=== PATIENT | female | born 1955 | race Caucasian/White ===

== ENCOUNTER 2017-01-01 03:01 | Emergency (ER) | payer MEDICARE, OTHER ==
[~2017-01-01 03:01] MED LIST: ASPIR 8181 MG PO; ASPIRIN81 MG PO; ATIVAN0.5 MG PO; BRILINTA 90 MG90 MG PO; BRILINTA90 MG PO; CYMBALTA60 MG PO; IMDUR ER TAB 3030 MG PO; LEVEMIR100 UNIT/1 SQ; LIPITOR TAB 2020 MG PO; LISINOPRIL10 MG PO; LISINOPRIL40 MG PO; LOPRESSOR50 MG PO; LORAZEPAM0.5 MG PO; METOPROLOL PO; MULTI-DAY VITA1 EACH PO; NEURONTIN 100100 MG PO; NEURONTIN 300300 MG PO; NEXIUM40 MG PO; NITROGLYCERIN0.4 MG SL; NITROSTAT0.4 MG SL; NORCO 10-325 T1 EACH PO; NOVOLOG 10100 UNITS/ INJ; NOVOLOG 10100 UNITS/ SC; SEROQUEL100 MG PO; TRULICITY0.75 MG/0. SQ; VITAMIN B-12100 MC1 PO
[2017-01-01 03:37] LABS: HEMOGLOBIN 14.5 gm/dl (12.3-15.3); RED BLOOD COUNT 4.77 M/UL (4.00-5.10); WHITE BLOOD COUNT 6.4 K/UL (4.5-11.0)
[2017-01-01 04:53] LABS: BUN/CREATININE RATIO 12 (0-10)
== END 2017-01-01 09:35 | disposition home or self-care (01) ==
LOC: ER1 03:01
PROVIDERS: Emergency Medicine
DX: J40 Bronchitis, not specified as acute or chronic (principal); E11.9 Type 2 diabetes mellitus without complications; I25.10 Atherosclerotic heart disease of native coronary artery without angina pectoris; Z90.49 Acquired absence of other specified parts of digestive tract; Z95.5 Presence of coronary angioplasty implant and graft; Z88.2 Allergy status to sulfonamides; Z88.8 Allergy status to other drugs, medicaments and biological substances; Z79.899 Other long term (current) drug therapy
CPT/HCPCS: 36415; 71010; 80053; 81001; 82550; 82553; 83874; 83880; 84484; 85025; 87040; 87086; 93005; 94664; 96365; 96375; 99285; J1956; J2930

== ENCOUNTER → 2017-01-16 | Outpatient (CLI) | payer MEDICARE, OTHER | LOC: KOH-I 13:04 | DX: S99.922A Unspecified injury of left foot, initial encounter (principal); M19.072 Primary osteoarthritis, left ankle and foot; Z88.2 Allergy status to sulfonamides; Z88.8 Allergy status to other drugs, medicaments and biological substances; Z88.1 Allergy status to other antibiotic agents | CPT/HCPCS: 73630 ==

== ENCOUNTER → 2017-01-29 | Outpatient (CLI) | payer MEDICARE, OTHER | LOC: HEART 5 08:37 | DX: J20.9 Acute bronchitis, unspecified (principal); Z87.891 Personal history of nicotine dependence | CPT/HCPCS: 94010 ==

== ENCOUNTER → 2017-03-13 | Outpatient (CLI) | payer MEDICARE, OTHER | LOC: RAD 10:51 | DX: M54.30 Sciatica, unspecified side (principal); M47.896 Other spondylosis, lumbar region | CPT/HCPCS: 72100; 73502 ==

== ENCOUNTER 2021-01-02 13:44 | Emergency (ER) | payer MEDICARE, OTHER ==
[~2021-01-02 13:44] MED LIST changes: +ALDACTONE25 MG PO; +IBUPROFEN600 MG PO; +IMDUR ER TAB 6060 MG PO; +ISOSORBIDE MONO60 MG PO; +LISINOPRIL20 MG PO; +MIRTAZAPINE7.5 MG PO; +MULTIVITAMINS1 EAC8 PO; +MYCOSTATIN CREA15 GM TOP; +NEURONTIN300 MG PO; +NORVASC10 MG PO; +NOVOLOG100 UNIT/1 SQ; +PROTONIX 40 MG40 M1 PO; +RANEXA500 MG PO; +SEROQUEL50 MG PO; +THERAGRAN M TAB1 EA PO; +TRESIBA FL100 UNIT/1 SC; +TRICOR 48 MG TA48 MG PO; +TRICOR145 MG PO; +TRULICITY1.5 MG/0.5 SQ; +VENTOLIN HFA 66.7 GM INH; +VITAMIN B12-FO1 EACH PO; +VITAMIN D35000 UNIT PO
[2021-01-02 15:55] LABS: BUN/CREATININE RATIO 18 (0-10)
[2021-01-02] MEDS ORDERED: K-DUR TAB 20 M20 MEQ PO (16:15)
== END 2021-01-02 16:35 | disposition home or self-care (01) ==
LOC: ER1 13:44
PROVIDERS: Physician Assistant
DX: E87.6 Hypokalemia (principal); E78.5 Hyperlipidemia, unspecified; E11.9 Type 2 diabetes mellitus without complications; I10 Essential (primary) hypertension; Z86.73 Personal history of transient ischemic attack (TIA), and cerebral infarction without residual deficits; Z90.49 Acquired absence of other specified parts of digestive tract; Z90.710 Acquired absence of both cervix and uterus; Z88.2 Allergy status to sulfonamides; Z88.8 Allergy status to other drugs, medicaments and biological substances; Z87.891 Personal history of nicotine dependence
CPT/HCPCS: 36415; 80048; 80053; 80061; 82043; 82570; 84439; 84443; 99284

== ENCOUNTER 2021-09-26 12:51 | Inpatient (IN) | payer MEDICARE, OTHER ==
[~2021-09-26] VITALS: Ht 165.1 cm; Wt 68.0 kg
[~2021-09-26 12:51] MED LIST changes: +ATIVAN1 MG PO; +HYDROCODON-ACE1 EAC6 PO; +K-DUR TAB 20 M20 MEQ PO
[2021-09-26 13:42] LABS: HEMOGLOBIN 13.8 gm/dl (12.3-15.3); RED BLOOD COUNT 4.37 M/UL (4.00-5.10); WHITE BLOOD COUNT 10.9 K/UL (4.5-11.0)
[2021-09-26 14:13] LABS: BUN/CREATININE RATIO 13 (0-10)
[2021-09-26] MEDS ORDERED: LATUDA40 MG PO (16:04)
[2021-09-26] MEDS ORDERED: PRAZOSIN HCL1 MG PO (16:04)
[2021-09-26] MEDS ORDERED: ATIVAN1 MG PO (16:04)
[2021-09-26] MEDS ORDERED: NOVOLOG FL100 UNIT/1 INJ (22:34)
[2021-09-27 04:31] LABS: BUN/CREATININE RATIO 15 (0-10)
[2021-09-27 04:33] LABS: HEMOGLOBIN 13.1 gm/dl (12.3-15.3); RED BLOOD COUNT 4.25 M/UL (4.00-5.10); WHITE BLOOD COUNT 8.8 K/UL (4.5-11.0)
[2021-09-27] MEDS ORDERED: ASPIRIN EC81 MG PO (10:40)
[2021-09-28 07:16] LABS: HEMOGLOBIN 13.5 gm/dl (12.3-15.3); RED BLOOD COUNT 4.34 M/UL (4.00-5.10); WHITE BLOOD COUNT 9.3 K/UL (4.5-11.0)
[2021-09-29 03:34] LABS: BUN/CREATININE RATIO 19 (0-10)
[2021-09-29] MEDS ORDERED: BRILINTA 90 MG90 MG PO (08:33)
[2021-09-29] MEDS ORDERED: CRESTOR 10 MG T10 MG PO (08:33)
[2021-09-29] MEDS ORDERED: ISOSORBIDE MONO60 MG PO (08:33)
[2021-09-29] MEDS ORDERED: NITROGLYCERIN0.4 MG SL (08:33)
[2021-09-29] MEDS ORDERED: ASPIRIN EC81 MG PO (08:33)
== END 2021-09-29 13:43 | disposition home or self-care (01) | DRG 247 ==
LOC: ER1 12:51 → CDU 15:10 → MED SURG 4 21:28 → CDU 09-28 13:15 → PROG CARE 09-28 15:02
PROVIDERS: Emergency Medicine; Physician Assistant; Physician Assistant Medical; ADMIT Internal Medicine
PROC: B2111ZZ Fluoroscopy of Multiple Coronary Arteries using Low Osmolar Contrast (ICD-10-PCS; principal; 2021-09-28)
PROC: 027035Z Dilation of Coronary Artery, One Artery with Two Drug-eluting Intraluminal Devices, Percutaneous Approach (ICD-10-PCS; principal; 2021-09-28)
PROC: 4A023N7 Measurement of Cardiac Sampling and Pressure, Left Heart, Percutaneous Approach (ICD-10-PCS; 2021-09-28)
DX: I25.10 Atherosclerotic heart disease of native coronary artery without angina pectoris (principal); E78.5 Hyperlipidemia, unspecified; Z20.822 Contact with and (suspected) exposure to COVID-19; K21.9 Gastro-esophageal reflux disease without esophagitis; E11.9 Type 2 diabetes mellitus without complications; M79.7 Fibromyalgia; F17.210 Nicotine dependence, cigarettes, uncomplicated; I44.0 Atrioventricular block, first degree; I10 Essential (primary) hypertension; I25.2 Old myocardial infarction; Z86.73 Personal history of transient ischemic attack (TIA), and cerebral infarction without residual deficits; Z95.5 Presence of coronary angioplasty implant and graft; Z88.2 Allergy status to sulfonamides; Z88.8 Allergy status to other drugs, medicaments and biological substances; Z79.4 Long term (current) use of insulin; Z91.19 Patient's noncompliance with other medical treatment and regimen; Z90.49 Acquired absence of other specified parts of digestive tract; Z98.890 Other specified postprocedural states; Z79.01 Long term (current) use of anticoagulants; Z79.82 Long term (current) use of aspirin; Z90.710 Acquired absence of both cervix and uterus; Z82.49 Family history of ischemic heart disease and other diseases of the circulatory system; Z80.8 Family history of malignant neoplasm of other organs or systems; Z91.14 Patient's other noncompliance with medication regimen
CPT/HCPCS: 36415; 71045; 78452; 80048; 80053; 82550; 82553; 82962; 83735; 83874; 84484; 85025; 85027; 85347; 92978; 93005; 93017; 99152; 99153; 99285; A9502; C1725; C1753; C1769; C1874; C1887; C1894; C9600; G0378; J0461; J1644; J2250; J2785; J3010; J7030; Q9965; U0002

== ENCOUNTER → 2021-11-20 | Day surgery (SDC) | payer MEDICARE, OTHER ==
[~2021-11-20] MED LIST changes: +ASPIRIN EC81 MG PO; +CRESTOR 10 MG T10 MG PO; +LATUDA40 MG PO; +LEXAPRO10 MG PO; +NOVOLOG FL100 UNIT/1 INJ; +PRAZOSIN HCL1 MG PO
== END | disposition home or self-care (01) ==
LOC: OR 06:46
DX: K31.9 Disease of stomach and duodenum, unspecified (principal); K21.9 Gastro-esophageal reflux disease without esophagitis; I10 Essential (primary) hypertension; R19.7 Diarrhea, unspecified; E11.9 Type 2 diabetes mellitus without complications; E78.5 Hyperlipidemia, unspecified; Z88.2 Allergy status to sulfonamides; Z88.8 Allergy status to other drugs, medicaments and biological substances; Z79.82 Long term (current) use of aspirin; Z79.4 Long term (current) use of insulin; Z20.822 Contact with and (suspected) exposure to COVID-19; Z95.5 Presence of coronary angioplasty implant and graft
CPT/HCPCS: 82962; J2001; J2704; J7040

== ENCOUNTER → 2021-12-14 | Outpatient (CLI) | payer MEDICARE, OTHER ==
[~2021-12-14] VITALS: Ht 165.1 cm; Wt 70.3 kg
== END ==
LOC: EROP 10:33
DX: U07.1 COVID-19 (principal); Z23 Encounter for immunization; I10 Essential (primary) hypertension; Z86.73 Personal history of transient ischemic attack (TIA), and cerebral infarction without residual deficits; E11.9 Type 2 diabetes mellitus without complications
CPT/HCPCS: M0247; Q0247

== ENCOUNTER → 2022-01-31 | Outpatient (CLI) | payer MEDICARE, OTHER | LOC: US 14:50 | DX: M79.661 Pain in right lower leg (principal); M79.89 Other specified soft tissue disorders | CPT/HCPCS: 93971 ==

== ENCOUNTER → 2022-02-22 | Outpatient (CLI) | payer MEDICARE, OTHER | LOC: KOH-I 02-18 16:30 | DX: S92.312A Displaced fracture of first metatarsal bone, left foot, initial encounter for closed fracture (principal); M19.072 Primary osteoarthritis, left ankle and foot | CPT/HCPCS: 73700 ==

== ENCOUNTER → 2022-03-14 | Outpatient (CLI) | payer MEDICARE, OTHER | LOC: KOH-I 14:47 | DX: M25.511 Pain in right shoulder (principal); M54.6 Pain in thoracic spine; M54.50 Low back pain, unspecified; M47.814 Spondylosis without myelopathy or radiculopathy, thoracic region; M47.816 Spondylosis without myelopathy or radiculopathy, lumbar region | CPT/HCPCS: 72070; 72100; 73030 ==